=== PATIENT | male | born 1980 | race Hispanic/Latino ===

== ENCOUNTER 2019-07-18 17:25 | Emergency (ER) | payer OTHER ==
[2019-07-18 18:09] LABS: CREATININE 1.4 mg/dL (0.5-1.5); POTASSIUM 3.4 mmol/L (3.5-5.1)
== END 2019-07-18 18:21 | disposition home or self-care (01) ==
LOC: EDH 17:25
DX: E87.6 Hypokalemia (principal); I10 Essential (primary) hypertension
CPT/HCPCS: 36415; 80048